=== PATIENT | male | born 1955 | race Caucasian/White ===

== ENCOUNTER → 2022-02-12 | Outpatient (CLI) | payer MEDICARE, OTHER ==
[2022-02-12 06:42] LABS: BASOPHILS % (AUTO) 0 % (0-10); EOSINOPHILS # (AUTO) 0.2 10^3/uL (0.0-0.3); EOSINOPHILS % (AUTO) 3 % (0-10); HEMATOCRIT 44 % (40-54); HEMOGLOBIN 15.3 g/dL (13.3-17.7); LYMPHOCYTES # (AUTO) 1.1 10^3/uL (1.0-4.0); LYMPHOCYTES % (AUTO) 19 % (12-44); MEAN CORPUSCULAR HEMOGLOBIN 35 pg (25-34); MEAN CORPUSCULAR HGB CONC 35 g/dL (32-36); MEAN CORPUSCULAR VOLUME 99 fL (80-99); MONOCYTES # (AUTO) 0.6 10^3/uL (0.0-1.0); MONOCYTES % (AUTO) 11 % (0-12); NEUTROPHILS # (AUTO) 3.9 10^3/uL (1.8-7.8); NEUTROPHILS % (AUTO) 67 % (42-75); PLATELET COUNT 144 10^3/uL (130-400); WHITE BLOOD COUNT 5.8 10^3/uL (4.3-11.0)
[2022-02-12 06:55] LABS: ALBUMIN 4.2 GM/DL (3.2-4.5); POTASSIUM 3.9 MMOL/L (3.6-5.0)
[2022-02-12 06:56] LABS: CALCIUM 9.2 MG/DL (8.5-10.1)
[2022-02-12 06:57] LABS: TOTAL PROTEIN 5.8 GM/DL (6.4-8.2)
[2022-02-12 06:59] LABS: BILIRUBIN,TOTAL 1.4 MG/DL (0.1-1.0)
[2022-02-12 07:01] LABS: CREATININE SERUM 0.94 MG/DL (0.60-1.30)
[2022-02-12 09:34] LABS: ATYPICAL LYMPHOCYTES 2 %; EOSINOPHILS % (MANUAL) 3 %; LYMPHOCYTES % (MANUAL) 11 %; MONOCYTES % (MANUAL) 14 %; NEUTROPHILS % (MANUAL) 70 %; RBC MORPH NORMAL
[2022-02-14 14:48] LABS: IMMUNOFIX PATH REPORT NUMBER Complete (Complete)
== END ==
LOC: LAB 06:04
DX: C90.00 Multiple myeloma not having achieved remission (principal)
CPT/HCPCS: 36415; 80053; 83615; 83883; 84155; 84165; 85007; 85027; 85230; 86334; 86850